=== PATIENT | female | born 1945 | race Caucasian/White ===

== ENCOUNTER 2017-04-14 21:04 | Emergency (ER) | payer OTHER ==
[~2017-04-14] VITALS: Ht 162.6 cm; Wt 99.8 kg
--- NOTE | 2017-04-14 21:09 | NUR ---
Patient to ER bed 04 to gown for evaluation. Side rails up.
[2017-04-14 21:10] VITALS: BP_SYST 171
--- NOTE | 2017-04-14 21:15 | NUR ---
Patient AOx4, ambulatory, presents to ER with complaint of pain to left arm, left leg, and left side of face 5/10 s/p fall. Patient states she tripped on cord on sidewalk and fell on left side of body. No active bleeding noted. No other symptoms or complaints at this time.
--- NOTE | 2017-04-14 21:23 | NUR ---
KP Ervin at bedside for medical evaluation.
[2017-04-14] MEDS ORDERED: ACETAMINOPHEN 325 MG TABLET PO ONE (21:30)
--- NOTE | 2017-04-14 22:32 | NUR ---
No adverse reactions noted after medication administration. Will continue to monitor.
[2017-04-14 23:00] VITALS: BP_SYST 146
--- NOTE | 2017-04-14 23:00 | NUR ---
Patient given written and verbal discharge instructions and verbalizes understanding. ER MD discussed with patient the results and treatment provided. Patient in stable condition. ID arm band removed. Patient educated on pain management and to follow up with PMD. Pain Scale 2/10. Opportunity for questions provided and answered.
== END 2017-04-14 23:00 | disposition home or self-care (01) ==
LOC: SED 21:04
DX: S52.125A Nondisplaced fracture of head of left radius, initial encounter for closed fracture (principal); S09.8XXA Other specified injuries of head, initial encounter; M25.562 Pain in left knee; W01.0XXA Fall on same level from slipping, tripping and stumbling without subsequent striking against object, initial encounter; Y93.89 Activity, other specified; Y92.89 Other specified places as the place of occurrence of the external cause; Y99.8 Other external cause status
CPT/HCPCS: 70450-TC; 73090; 99284